=== PATIENT | male | born 1955 | race Caucasian/White ===

== ENCOUNTER 2019-05-01 01:26 | Day surgery (SDC) | payer BC, SELFPAY ==
[2019-04-26 08:13] VITALS: BMI 27.6
--- NOTE | 2019-04-29 15:15 | WPDANESEPP ---
Anes - Eval Pre Procedure Procedure: Operation Date: 05/01/19 10:00 Proposed Procedures p Colonoscopy - Cristóbal Mukherjee MD Date/Time: 04/29/19 15:15 Pre Op Diagnosis: Lower GI Bleeding/ Change In Bowel Habits Patient Data Age: 64 Gender: M Height: 5 ft 11 in Weight: 90 kg Allergies Allergy/AdvReac Type Severity Reaction Status Date / Time Penicillins Allergy Severe Hives Verified 04/26/19 08:10 Home Medications Medication Instructions Recorded Confirmed Type famotidine 20 mg PO DAILY 04/26/19 04/26/19 History na-rb-[id number] #[id number] 100 mg PO DAILY 04/26/19 04/26/19 History [Urinozinc Prostate Formula] Patient hx anesthesia problems: none Family hx anesthesia problems: none PMF Past Medical History Medical History (Updated 04/29/19 @ 15:14 by Fidelia Everett CRNA) BPH (benign prostatic hyperplasia) Chronic back pain Chronic GERD Lower GI bleed Overweight (BMI 25.0-29.9) Exam Day of Procedure 04/29/19 15:15
[2019-05-01 09:00] VITALS: BP 141/83; PULSE 93; RESP 16; TEMP 36.5; O2SAT 99
[2019-05-01] MEDS: LACTATED RINGERS 1,000 ML 150 ML IV CONT (09:12)
--- NOTE | 2019-05-01 09:54 | WPDANESEFPP ---
Anes - Eval Final PreProcedure Day of Procedure 05/01/19 09:54 Patient weight: overweight Heart: regular rate and rhythm Lungs: clear to auscultation Airway: Mallampati scale class III Neurological: alert and oriented Last oral intake: >/= 8 hours ASA classification: II Emergent: no Anesthetic plan: proceed Anesthesia type and monitoring: general GIVS and standard monitoring Informed Consent: The patient's anesthetic plan and its attendant risks and benefits were discussed with the patient/family/POA. Questions were solicited and answers provided to the satisfaction of the patient/family/POA.
--- NOTE | 2019-05-01 10:12 | WPDGICN ---
Assessment and Plan Additional Plan This is a 64-year-old white male patient seen in evaluation at the request of Dr. Gurrola. Patient has a history of bright red blood per rectum that began in December of 2018. He describes is being bright red blood. Worse after a bowel movement. Noted when bleeding. He has had a lifelong history of a ?and ?sensitive stomach? period now complains of gas and blood and mucus with his bowel movements. He notices predominantly in the morning every day. He will have formed bowel movements later in the day. This is often associated with abdominal cramping in the morning. He denies any fevers. He may have up to 5 bowel movements a day. Last colonoscopy an EGD were 20 years ago. Current medications include famotidine daily which he has taken for many years. Recently was on trial of steroids for an URI for 1 week. Past medical history is significant for chronic back pain. Prostatic hypertrophy. Chronic GE reflux. Physical exam reveals him to be alert. Vital signs stable. HEENT exam unremarkable. Lungs are clear to auscultation and percussion. Heart is without murmur or extra sounds. Abdominal exam bowel sounds are present soft nontender with no organomegaly. Digital external rectal exam normal. Impression 1. Lower GI bleeding. May represent colitis. Cannot exclude hemorrhoidal bleeding. 2. Change in bowel habits. Symptom complex suspicious for colitis. Other etiology such as irritable bowel syndrome and hemorrhoids cannot be excluded. Plan is for colonoscopy to assess blood loss and change in bowel habits more thoroughly. Further recommendations will be given after endoscopy. GI Consult Note Consult date/time: 05/01/19 10:12 HPI: Kirk Groves is a 64 year old male [facility] Past Medical History Medical History (Updated 04/29/19 @ 15:14 by Fidelia Everett CRNA) BPH (benign prostatic hyperplasia) Chronic back pain Chronic GERD Lower GI bleed Overweight (BMI 25.0-29.9) Meds Home Medications and Allergies Home Medications Medication Instructions Recorded Confirmed Type famotidine 20 mg PO DAILY 04/26/19 04/26/19 History am-dd-zyyjai #[id number] 100 mg PO DAILY 04/26/19 04/26/19 History [Urinozinc Prostate Formula] Allergies Allergy/AdvReac Type Severity Reaction Status Date / Time Penicillins Allergy Severe Hives Verified 04/26/19 08:10 Vital Signs Vital Signs - 24 hr 05/01/19 09:00 Temperature 36.5 C Pulse Rate 93 Respiratory Rate 16 Blood Pressure 141/83 H Pulse Oximetry 99
[2019-05-01 10:42] VITALS: BP 100/54; PULSE 85; RESP 20; O2SAT 100
[2019-05-01 10:52] VITALS: BP 101/64; PULSE 92; RESP 19; O2SAT 98
[2019-05-01 11:02] VITALS: BP 127/72; PULSE 82; RESP 19; O2SAT 98
[2019-05-01 11:03] LABS: Basophils Percent Auto 0.5 % (0.2-1.2); Eosinophils Absolute Auto 0.1 K/mm3 (0-0.3); Eosinophils Percent Auto 2.8 % (0-4.4); Hematocrit 28.1 % (42.0-52.0); Immature Granulocyte Absolute 0.02 K/mm3 (0.00-0.031); Immature Granulocyte Percent A 0.5 % (0-0.5); Lymphocytes Absolute Auto 0.79 K/mm3 (0.9-3.2); Lymphocytes Percent Auto 20.2 % (18.3-44.2); Mean Corpuscular Hemoglobin 27.8 pg (26-34); Mean Corpuscular Volume 86.7 fl (80-100); Mean Platelet Volume 8.9 fl (7.4-10.4); Monocytes Absolute Auto 0.3 K/mm3 (0.1-0.6); Monocytes Percent Auto 8.2 % (2.6-8.5); Neutrophils Absolute Auto 2.7 K/mm3 (1.3-6.7); Neutrophils Percent Auto 67.8 % (45.5-73.1); Platelet Count Result 123 k/mm3 (150-375); Red Blood Count 3.24 M/mm3 (4.6-6.20); Red Cell Distribution Width 13.2 % (11.5-14.5); White Blood Count 3.9 K/mm3 (4.5-10.0)
[2019-05-01 11:15] LABS: Alanine Aminotransferase 6 U/L (4-50); Albumin Level 1.6 g/dL (3.5-5.1); Alkaline Phosphatase 29 U/L (38-126); Aspartate Amino Transferase 10 U/L (17-59); Bilirubin,Total < 0.1 mg/dL (0.2-1.3)
[2019-05-01 11:46] LABS: Carcinoembryonic Antigen 0.9 ng/mL (0.0-3.0)
== END 2019-05-01 11:26 | disposition home or self-care (01) ==
PROVIDERS: PCP Family Medicine Adolescent Medicine; Visit Provider Internal Medicine Gastroenterology
PROC: 0DJD8ZZ Inspection of Lower Intestinal Tract, Via Natural or Artificial Opening Endoscopic (ICD-10-PCS; CPT 45378; principal; 2019-05-01 10:00)
DX: C18.7 Malignant neoplasm of sigmoid colon (principal); K64.8 Other hemorrhoids; K21.9 Gastro-esophageal reflux disease without esophagitis; N40.0 Benign prostatic hyperplasia without lower urinary tract symptoms
CPT/HCPCS: 45380; 36415; 80076; 82378; 85025; 88305; J2704; J7120